=== PATIENT | female | born 1990 | race African-American/Black ===

== ENCOUNTER 2016-08-30 02:40 | Emergency (ER) | payer OTHER ==
[~2016-08-30] VITALS: Ht 162.6 cm; Wt 134.0 kg
[~2016-08-30 02:40] MED LIST: CIPR500T4 PO; LORTA5 PO; ZOFR4TAB3 SL
[2016-08-30 02:41] VITALS: BP 134/71; PULSE 78; RESP 14; TEMP 97.6; O2SAT 98
--- NOTE | 2016-08-30 03:25 | PD ---
HPI Chief Complaint: Fall Time Seen by Provider: 03:22 Travel History International Travel<30 days: No Contact w/Intl Traveler<30days: No Traveled to known affect area: No History of Present Illness HPI 25-year-old black female presents to emergency department for evaluation of a facial laceration which occurred prior to arrival. She states that she was at a "[employer]". She states that she had slipped and fell 4 striking her face on the ground. No syncope. No neck or back pain. No numbness, tingling or weakness. The patient did sustain a laceration to her left eyebrow. Pain is mild. No nausea vomiting. PFSH Past Medical History Medical History: Denies Significant Hx Immunizations Current: Yes Tetanus Vaccination: < 5 Years Influenza Vaccination: No ?: Not LMP: 08/13/16 : 0 Para: 0 Miscarriage: 0 : 0 Past Surgical History Surgical History: No Previous Surgery Tonsillectomy: Yes Social History Alcohol Use: Yes (OCCASIONAL) Tobacco Use: No Substance Use: No Allergies-Medications (Allergen,Severity, Reaction): Coded Allergies: No Known Allergies (Unverified , 08/30/16) Reported Meds & Prescriptions Reported Meds & Active Scripts Active No Active Prescriptions or Reported Medications Review of Systems Except as stated in HPI: all other systems reviewed are Neg Physical Exam Narrative GENERAL: Well-developed, well-nourished in no apparent distress. Nontoxic appearing. HEAD: Normocephalic, patient is a 1 cm laceration to the left eyebrow EYES: Pupils equal round and reactive. Extraocular motions intact. No scleral icterus. No injection or drainage. ENT: Nose clear. Throat without erythema, tonsillar hypertrophy or exudate. Uvula midline. Airway patent. NECK: Trachea midline. Supple, nontender, moves head freely. No central bony tenderness or spasm. CARDIOVASCULAR: Regular rate and rhythm without murmurs, gallops, or rubs. RESPIRATORY: Clear to auscultation. Breath sounds equal bilaterally. No wheezes , rales, or rhonchi. GASTROINTESTINAL: Abdomen soft, non-tender, nondistended. No hepato-splenomegaly , or palpable masses. No guarding. EXTREMITIES: No clubbing, cyanosis, or edema. No joint tenderness. BACK: Nontender without deformity. No flank tenderness. NEUROLOGICAL: Awake, alert and oriented x 3 .Cranial nerves grossly intact. Motor and sensory grossly within normal limits. Normal speech. Data Data Last Documented VS Vital Signs Date Time Temp Pulse Resp B/P Pulse Ox O2 Delivery O2 Flow Rate FiO2 08/30/16 02:41 97.6 78 14 134/71 98 Room Air MDM Medical Decision Making Medical Screen Exam Complete: Yes Emergency Medical Condition: Yes Medical Record Reviewed: Yes Differential Diagnosis MDM: High Differential diagnoses: Fracture, sprain, strain, dislocation, contusion, neurovascular injury Narrative Course pATIENT'S LACERATION IS CLOSED WITH dERMABOND Procedures Procedure Narrative LACERATION LOCATION: Left eyebrow LENGTH: 1 cm NUMBER OF STITCHES/MUKESH: Not applicable REPAIR: The area of the laceration was prepped with Betadine and sterilely draped. The wound was copiously irrigated and explored without evidence of foreign body, tendon injury or neurovascular injury. The wound was closed using Dermabond. This was a simple single layer repair. The patient was advised to keep the dressing clean and dry. Patient tolerated the procedure well. Diagnosis Primary Impression: Facial laceration Qualified Code: S01.81XA - Facial laceration, initial encounter Patient Instructions: General Instructions Additional Instructions: Rest. Ice pack tonight. Tylenol or Advil for pain. Dermabond instructions Sunscreen and mederma for 6 months. Return to the ER for any problems. Follow-up with a medical doctor in one week. Med/Other Pt SpecificInfo: Wound Care Scripts No Active Prescriptions or Reported Meds Disposition: 01 DISCHARGE HOME Condition: Stable Ralph Cox Aug 30, 2016 03:25
== END 2016-08-30 03:30 | disposition home or self-care (01) ==
LOC: NEPB 02:40
DX: S01.112A Laceration without foreign body of left eyelid and periocular area, initial encounter (principal); W01.198A Fall on same level from slipping, tripping and stumbling with subsequent striking against other object, initial encounter; Y93.89 Activity, other specified
CPT/HCPCS: 12011